=== PATIENT | male | born 1970 | race Caucasian/White ===

== ENCOUNTER → 2016-06-07 | Outpatient (CLI) | payer BC ==
--- NOTE | 2016-06-07 18:48 | REP ---
The right knee five views : There is no fracture or dislocation. Mineralization and joint spaces are normal. There are no calcifications or foreign bodies. Impression: Negative right knee . Signed by Daryl Baker MD 06/07/2016 06:40 P
== END ==
LOC: M WUC 18:25
PROVIDERS: ATTEND Physician Assistant
DX: S83.421A Sprain of lateral collateral ligament of right knee, initial encounter (principal); X58.XXXA Exposure to other specified factors, initial encounter; Y92.9 Unspecified place or not applicable; Y93.9 Activity, unspecified; Y99.9 Unspecified external cause status

== ENCOUNTER → 2016-07-26 | Day surgery (SDC) | payer BC ==
[~2016-07-26] VITALS: Ht 188 cm; Wt 107.0 kg
[~2016-07-26] MED LIST: ASPI1TAB PO; FARX1TAB2 PO; GLIM2TA PO; LR 1,000 ML IV SCH; METF500T PO; MULT1TAB11 PO; OMEP20CA3 PO; ROPIvacaine 0.5% 30 ML INJECTION (J2795) As Ordered ONE; SIMV40TA2 PO; TRUL0.5I SC; ceFAZolin 1GM INJ (J0690) As Ordered ONE
[2016-07-26 12:56] VITALS: BP 125/84
== END ==
LOC: M SDC 12:14
PROVIDERS: ATTEND Orthopaedic Surgery
DX: Z53.29 Procedure and treatment not carried out because of patient's decision for other reasons (principal)

== ENCOUNTER → 2016-08-09 | Day surgery (SDC) | payer BC ==
[~2016-08-09] VITALS: Ht 188 cm; Wt 107.0 kg
[~2016-08-09] MED LIST changes: +LIDOCAINE 2% INJ 100 MG/5 ML SDV (FOR ANES.) As Ordered ONE; +MIDAZOLAM INJ 2 MG/2 ML VIAL (J2250) As Ordered ONE; +MORPHINE 4 MG/ML 1ML SYRINGE IV PRN; +NORCO, ANEXSIA 5/325MG TABLET (HYDROcodone/ACETAMINOPHEN) PO PRN; +ONDANSETRON 4MG/2ML VIAL (J2405) IV PRN; +PERCOCET 5MG/325MG TAB PO PRN; +PROPOFOL 200 MG/20 ML VIAL As Ordered ONE; +ceFAZolin 2 GM/D5W 50 ML IV BAG (J0690) As Ordered ONE; +fentaNYL 100 MCG/2 ML INJECTION (J3010) As Ordered ONE; +fentaNYL 100 MCG/2 ML INJECTION (J3010) IV PRN
[2016-08-09 11:50] VITALS: BP 141/77
--- NOTE | 2016-08-09 20:25 | RO ---
DATE OF PROCEDURE: 08/09/2016 PREOPERATIVE DIAGNOSIS: Right knee anterior cruciate ligament (ACL) tear. POSTOPERATIVE DIAGNOSIS: Right knee ACL tear. OPERATIVE PROCEDURE: Right knee posterior tibial tendon Allograft ACL reconstruction using independent femoral tunnel drilling technique. SURGEON: Sera Ashton MD [employer] STEWARD/STEWARDESS: NEW [place] ANESTHESIA: Spinal. COMPLICATIONS: None. ESTIMATED BLOOD LOSS: Less than 20 mL. Findings: He had essentially a complete rupture of the ACL. Medial and lateral menisci were not torn. There was some subchondral grade II chondral defect of a small portion of the medial femoral condyle noted. DESCRIPTION OF OPERATION: Antibiotics were given intravenously, preoperatively and successful spinal anesthetic was induced, tourniquet placed right upper thigh and not inflated. Exam under anesthesia revealed an increased Wolf and of pivot shift, but full range of motion. The right lower extremity was then prepped and draped in the usual sterile fashion. After appropriate time-out the leg was elevated and tourniquet inflated. Insufflation portal was established superomedially, scope was introduced anterolaterally and working portal was anteromedially. We introduced the arthroscope and explored the joint with the findings as noted above. Once it was determined that indeed we were going to proceed with the ACL reconstruction, Mr. Raymond my assistant shift supervisor went to the back table and prepared to posterior tibial tendon Allograft by whipstitching the proximal and distal ends with FiberWire and then the double-over construct fit nicely, fairly snugly through a 9 mm diameter sleeve. As he was doing that I debrided the remnant of the ACL, explored the medial and lateral menisci. They were not torn. The posterior cruciate ligament (PCL) was intact. There was a small cartilage defect noted in the medial femoral condyle, otherwise there was no other pathology noted. Once I debrided the ACL, I placed a scope in the anteromedial portal, placed the femoral guide, anatomic footprint of the ACL. Laterally near the lateral condyle, I made a small stab incision down through the iliotibial band, advanced the drill guide and then the 3.5 drill pin was advanced, came out precisely in our location in the trochlear notch. Then the drill pin was switched to the 9 mm flip cutter and then the drill sleeve was impaled into the lateral femoral cortex about 7 mm and then the flip cutter flipped and then retrograde drilled, measuring about 35 mm of femoral tunnel or a little more than 40 overall tunnel length. A passing suture was then passed and then we brought the passing suture out through the anterolateral portal and then the scope was placed back in the anterolateral portal and then the tibial drill guide positioned across from and aligned with the midportion of the anterior attachment of the lateral meniscus. A small stab incision was made over the anteromedial aspect of the proximal tibia, subperiosteal dissection was performed down to the tibia and the drill guide placed against the bone, then drilled and came out precisely at the tibial ACL insertion location and then the 9 mm reamer placed. The rubber dam was placed and we debrided the debris inside the joint with the shaver and did rasp the posterior aspect of the tibial tunnel a bit with a rasp. Then on the back table after the grafts were placed under tension, they were loaded onto the tightrope device and marked appropriately and then the passing sutures were brought down through the anteromedial tibial tunnel and then the passing sutures passed through the loop of suture then pulled out through the lateral femoral tunnel. The graft was pulled up into the knee and then the tightrope button was pulled and then secured against the lateral femoral cortex and confirmed with firm downward pressure on the graft area. It was well-seated. Then I advanced the graft up into the femoral tunnel using the white sutures. I then cycled the knee in flexion and extension, inspected it with flexion and extension. It was in good position. Photographs were taken. Then I held the knee at about 20 degrees from full extension with a firm posterior drawer and firm downward pressure on both limbs of the graft and advanced the 9 x 28 Bioscrew up the tibial tunnel with excellent purchase. This eliminated his Wolf on the table, eliminated its pivot shift. He had full flexion and extension. Graft was inspected once again and found to be nice and taut. He did tighten a little bit in extension compared to flexion. We copiously irrigated out the knee joint. Instilled the Ropivacaine, then the graft limbs that were emanating from the tibial tunnel were cut short and then the wounds were closed with interrupted nylon sutures and covered with an Adaptic dry sterile bulky dressing and then the tourniquet was released and he was transferred to the recovery room in stable condition. There were no intraoperative complications.
== END | disposition home or self-care (01) ==
LOC: M SDC 05:43
PROVIDERS: ATTEND Orthopaedic Surgery
DX: M23.51 Chronic instability of knee, right knee (principal); I10 Essential (primary) hypertension; E78.5 Hyperlipidemia, unspecified; K21.9 Gastro-esophageal reflux disease without esophagitis; G47.30 Sleep apnea, unspecified; F17.210 Nicotine dependence, cigarettes, uncomplicated; Z88.2 Allergy status to sulfonamides; Z79.82 Long term (current) use of aspirin; Z79.899 Other long term (current) drug therapy
CPT/HCPCS: 29888; C1713; C1762; J0690; J2250; J2795; J3010

== ENCOUNTER → 2019-04-08 | Outpatient (REF) | payer BC ==
[~2019-04-08] MED LIST changes: -ASPI1TAB PO; +ASPI81TA26 PO; -FARX1TAB2 PO; +FARX1TAB3 PO; -GLIM2TA PO; +GLIM2TAB29 PO; -LIDOCAINE 2% INJ 100 MG/5 ML SDV (FOR ANES.) As Ordered ONE; -LR 1,000 ML IV SCH; -METF500T PO; +METF500T13 PO; -MIDAZOLAM INJ 2 MG/2 ML VIAL (J2250) As Ordered ONE; -MORPHINE 4 MG/ML 1ML SYRINGE IV PRN; -NORCO, ANEXSIA 5/325MG TABLET (HYDROcodone/ACETAMINOPHEN) PO PRN; +OMEP-172 PO; -OMEP20CA3 PO; -ONDANSETRON 4MG/2ML VIAL (J2405) IV PRN; -PERCOCET 5MG/325MG TAB PO PRN; -PROPOFOL 200 MG/20 ML VIAL As Ordered ONE; -ROPIvacaine 0.5% 30 ML INJECTION (J2795) As Ordered ONE; -SIMV40TA2 PO; +SIMV40TA20 PO; -ceFAZolin 1GM INJ (J0690) As Ordered ONE; -ceFAZolin 2 GM/D5W 50 ML IV BAG (J0690) As Ordered ONE; -fentaNYL 100 MCG/2 ML INJECTION (J3010) As Ordered ONE; -fentaNYL 100 MCG/2 ML INJECTION (J3010) IV PRN
[2019-04-10 11:05] LABS: LDL DIRECT 73 mg/dL (0-99)
== END ==
LOC: M LAB REF 16:16
PROVIDERS: ATTEND Internal Medicine
DX: E78.5 Hyperlipidemia, unspecified (principal)

== ENCOUNTER → 2021-11-07 | Outpatient (CLI) | payer BC ==
[~2021-11-07] MED LIST changes: +HUMA100I5; -OMEP-172 PO; +OMEP1CAP73 PO
== END ==
LOC: M LABSMTC 09:56
PROVIDERS: ATTEND Anesthesiology
DX: Z01.812 Encounter for preprocedural laboratory examination (principal); Z20.822 Contact with and (suspected) exposure to COVID-19

== ENCOUNTER 2021-11-11 06:31 | Day surgery (SDC) | payer BC ==
[~2021-11-11] VITALS: Ht 188 cm; Wt 113.9 kg
[~2021-11-11 06:31] MED LIST changes: +NS 1,000 ML IV ONE
[2021-11-11] MEDS ORDERED: propofoL 200 MG/20 ML VIAL As Ordered ONE (08:38)
[2021-11-11] MEDS ORDERED: LIDOCAINE 2% INJ 100 MG/5 ML SYRINGE As Ordered ONE (08:38)
[2021-11-11 09:05] VITALS: BP 143/77
== END 2021-11-11 09:16 | disposition home or self-care (01) ==
LOC: M OPP 06:31
PROVIDERS: ATTEND Surgery
DX: Z12.11 Encounter for screening for malignant neoplasm of colon (principal); K63.5 Polyp of colon; Z79.02 Long term (current) use of antithrombotics/antiplatelets; Z79.4 Long term (current) use of insulin; Z79.82 Long term (current) use of aspirin; Z88.2 Allergy status to sulfonamides; E11.9 Type 2 diabetes mellitus without complications; G47.33 Obstructive sleep apnea (adult) (pediatric); Z99.89 Dependence on other enabling machines and devices; Z87.891 Personal history of nicotine dependence

== ENCOUNTER → 2021-12-09 | Outpatient (CLI) | payer BC ==
[~2021-12-09] MED LIST changes: -NS 1,000 ML IV ONE; +TRES1INJ SQ; +VITMTA PO
== END ==
LOC: M LABSMTC 09:32
PROVIDERS: ATTEND Anesthesiology
DX: Z01.818 Encounter for other preprocedural examination (principal); Z11.52 Encounter for screening for COVID-19

== ENCOUNTER 2021-12-14 06:01 | Day surgery (SDC) | payer BC ==
[~2021-12-14] VITALS: Ht 188 cm; Wt 113.4 kg
[~2021-12-14 06:01] MED LIST changes: +ceFAZolin SOD 2 GM in IV 1 EA IV ONE
[2021-12-14] MEDS ORDERED: LR 1,000 ML IV SCH ×2 (06:15→08:30)
[2021-12-14] MEDS ORDERED: LIDOCAINE 2% 100MG/5ML SDV (FOR ANES.) As Ordered ONE (06:58)
[2021-12-14] MEDS ORDERED: propofoL 200 MG/20 ML VIAL As Ordered ONE (06:58)
[2021-12-14] MEDS ORDERED: ONDANSETRON 4MG 2ML VIAL As Ordered ONE (07:00)
[2021-12-14] MEDS ORDERED: HYDROmorphone HCL 2MG/ML 1ML VIAL As Ordered ONE (07:01)
[2021-12-14] MEDS ORDERED: fentaNYL 100 MCG/2 ML INJECTION As Ordered ONE (07:01)
[2021-12-14] MEDS ORDERED: MIDAZOLAM INJ 2MG/2ML VIAL (J2250 PER 1MG) As Ordered ONE (07:01)
[2021-12-14] MEDS ORDERED: ROCURONIUM BROMIDE 50 MG/5 ML VIAL As Ordered ONE (07:14)
[2021-12-14] MEDS ORDERED: BUPIVACAINE/EPIN 0.25% 30 ML VIAL As Ordered ONE (07:20)
[2021-12-14] MEDS ORDERED: BUPIVACAINE HCL 0.25% 30ML VIAL As Ordered ONE (07:20)
[2021-12-14] MEDS ORDERED: INSULIN LISPRO (NovoLOG) PER UNIT SC PRN (07:20)
[2021-12-14] MEDS ORDERED: BUPIVACAINE LIPOSOME/PF 1.3% 20ML VIAL (13.3MG/ML)(EXPAREL) As Ordered ONE (07:21)
[2021-12-14] MEDS ORDERED: SUGAMMADEX SODIUM 500 MG/5 ML VIAL (BRIDION) As Ordered ONE (07:49)
[2021-12-14] MEDS ORDERED: MORPHINE 2 MG/ML 1ML VIAL IV PRN (08:30)
[2021-12-14] MEDS ORDERED: oxyCODONE 5MG TAB PO PRN (08:30)
[2021-12-14] MEDS ORDERED: ONDANSETRON 4MG 2ML VIAL IV PRN (08:30)
[2021-12-14] MEDS ORDERED: fentaNYL 100 MCG/2 ML INJECTION IV PRN (08:30)
[2021-12-14] MEDS ORDERED: PERCOCET 5MG/325MG TAB PO PRN ×2 (08:55)
[2021-12-14] MEDS ORDERED: NS 1,000 ML IV SCH (08:55)
[2021-12-14 09:56] VITALS: BP 144/89
== END 2021-12-14 09:59 | disposition home or self-care (01) ==
LOC: M SDC 06:01
PROVIDERS: ATTEND Surgery
DX: K42.9 Umbilical hernia without obstruction or gangrene (principal); E11.9 Type 2 diabetes mellitus without complications; K21.9 Gastro-esophageal reflux disease without esophagitis; G47.33 Obstructive sleep apnea (adult) (pediatric); Z79.84 Long term (current) use of oral hypoglycemic drugs; Z79.4 Long term (current) use of insulin; Z79.82 Long term (current) use of aspirin; Z88.2 Allergy status to sulfonamides; Z87.891 Personal history of nicotine dependence
CPT/HCPCS: 49585; 88302; C9290; J0690; J1170; J2250; J2405; J3010

== ENCOUNTER → 2023-09-06 | Outpatient (CLI) | payer BC ==
[~2023-09-06] MED LIST changes: -ceFAZolin SOD 2 GM in IV 1 EA IV ONE
== END ==
LOC: M SOG 08:02
PROVIDERS: ATTEND Physician Assistant
DX: M25.511 Pain in right shoulder (principal); M25.522 Pain in left elbow

== ENCOUNTER → 2023-09-14 | Outpatient (REF) | payer BC ==
[2023-09-15 07:11] LABS: LDL DIRECT 146 mg/dL (0-99)
== END ==
LOC: M LAB REF 12:46
PROVIDERS: ATTEND Internal Medicine
DX: E78.00 Pure hypercholesterolemia, unspecified (principal)

== ENCOUNTER → 2023-10-20 | Outpatient (CLI) | payer BC | LOC: M PLAIMG 14:34 | PROVIDERS: ATTEND Orthopaedic Surgery | DX: M48.02 Spinal stenosis, cervical region (principal) ==

== ENCOUNTER → 2024-07-31 | Outpatient (CLI) | payer OTHER | LOC: M RAD 15:36 | PROVIDERS: ATTEND Internal Medicine | DX: Z12.2 Encounter for screening for malignant neoplasm of respiratory organs (principal); F17.211 Nicotine dependence, cigarettes, in remission ==

== ENCOUNTER → 2024-09-25 | Outpatient (CLI) | payer OTHER | LOC: M SLEEP 20:00 | PROVIDERS: ATTEND Physician Assistant | DX: G47.33 Obstructive sleep apnea (adult) (pediatric) (principal) ==